=== PATIENT | female | born 1995 | race Two or more races ===

== ENCOUNTER 2017-07-11 22:26 | Emergency (ER) | payer SELFPAY ==
[~2017-07-11] VITALS: Ht 152.4 cm; Wt 82.0 kg
[2017-07-11] MEDS ORDERED: ONDANSETRON HCL 4MG/2ML VIAL IV STA (23:08)
[2017-07-11] MEDS ORDERED: MORPHINE SULFATE 4 MG/ML CPJ (NOT FOR IM USE) IV STA (23:08)
[2017-07-11] MEDS ORDERED: PIPERACILLIN/TAZOBACTAM 3.375GM/50ML PREMIX IV ONE (23:15)
[2017-07-11] MEDS ORDERED: PIPERACILLIN/TAZ 3.375G PREMIX 50 ML IV NR (23:15)
[2017-07-12 00:33] LABS: BASOPHILS % 0.1 % (0.0-2.0); EOSINOPHILS % 0.2 % (0.0-5.0); HEMATOCRIT. 38.2 % (36.0-48.0); HEMOGLOBIN. 12.5 g/dL (12.0-16.0); LYMPHOCYTES % 7.6 % (20.0-50.0); MEAN CORPUSCULAR HEMOGLOBIN 26.6 pg (28.0-32.0); MEAN CORPUSCULAR VOLUME 81.5 fL (81.0-99.0); MEAN PLATELET VOLUME 7.9 fl (7.4-10.4); MONOCYTES % 6.2 % (2.0-8.0); NEUTROPHILS % 85.9 % (40.0-76.0); PLATELET 441 x1000/uL (130-400); RED BLOOD CELL COUNT 4.69 mill/uL (4.2-5.4); RED CELL DISTRIBUTION WIDTH 13.8 % (11.6-14.6)
[2017-07-12 00:38] LABS: CHLORIDE 102 mEq/L (98-107)
[2017-07-12 00:40] LABS: INR 1.1; PROTHROMBIN TIME 11.1 sec (9.4-11.6)
[2017-07-12 01:29] LABS: CLARITY URINE CLEAR (CLEAR); COLOR URINE YELLOW (YELLOW); KETONES URINE NEGATIVE (NEGATIVE); LEUKOCYTE ESTERASE URINE NEGATIVE (NEGATIVE); NITRITE URINE NEGATIVE (NEGATIVE); OCCULT BLOOD URINE 2+ (NEGATIVE); PH URINE 7.5 (4.5-8.0); PROTEIN URINE NEGATIVE (NEGATIVE); SPECIFIC GRAVITY URINE 1.016 (1.005-1.030); UROBILINOGEN URINE 0.2 E.U./dL (0.2-1.0)
[2017-07-12 07:28] VITALS: BP 136/81
== END 2017-07-12 07:31 | disposition home or self-care (01) ==
LOC: ER 22:26 → CANBEDREQ 07-12 07:33
DX: I88.0 Nonspecific mesenteric lymphadenitis (principal); N83.291 Other ovarian cyst, right side
CPT/HCPCS: 36415; 74176; 76830; 76856; 80053; 81003; 81025; 83690; 85025; 85610; 96365; 96375; 99285; J2270; J2405; J2543; Z7610

== ENCOUNTER 2018-09-27 08:07 | Emergency (ER) | payer MEDICAID ==
[~2018-09-27] VITALS: Ht 160 cm; Wt 93.4 kg
[2018-09-27 09:27] LABS: BASOPHILS % 0.7 % (0.0-2.0); EOSINOPHILS % 1.4 % (0.0-5.0); LYMPHOCYTES % 36.1 % (20.0-50.0); MEAN CORPUSCULAR HEMOGLOBIN 27.7 pg (28.0-32.0); MEAN CORPUSCULAR VOLUME 83.3 fL (81.0-99.0); MEAN PLATELET VOLUME 7.6 fl (7.4-10.4); MONOCYTES % 10.4 % (2.0-8.0); NEUTROPHILS % 51.4 % (40.0-76.0); PLATELET 385 x1000/uL (130-400); RED BLOOD CELL COUNT 4.68 mill/uL (4.2-5.4); RED CELL DISTRIBUTION WIDTH 13.2 % (11.6-14.6)
[2018-09-27 09:30] LABS: CHLORIDE 107 mEq/L (98-107)
[2018-09-27] MEDS: SODIUM CHLORIDE 0.9% 1,000 ML IV ONE (09:48)
[2018-09-27] MEDS: FAMOTIDINE 20MG/2ML VIAL IV ONE (10:03)
[2018-09-27 10:04] LABS: CLARITY URINE CLOUDY (CLEAR); COLOR URINE YELLOW (YELLOW); KETONES URINE TRACE (NEGATIVE); LEUKOCYTE ESTERASE URINE NEGATIVE (NEGATIVE); NITRITE URINE NEGATIVE (NEGATIVE); OCCULT BLOOD URINE 1+ (NEGATIVE); PH URINE 6.5 (4.5-8.0); PROTEIN URINE NEGATIVE (NEGATIVE); SPECIFIC GRAVITY URINE 1.026 (1.005-1.030)
[2018-09-27] MEDS: ONDANSETRON HCL 4MG/2ML INJ IV ONE ×2 (10:04→11:23)
[2018-09-27] MEDS: MAGNESIUM/ALUMINUM HYDROXIDE/SIMETHICONE 30ML UDC PO ONE (10:04)
[2018-09-27 13:30] VITALS: BP 115/85
[2018-09-27] MEDS ORDERED: IOHEXOL-300 100 ML BOTTLE ONE (14:12)
== END 2018-09-27 13:35 | disposition home or self-care (01) ==
LOC: ER 08:07
DX: R11.2 Nausea with vomiting, unspecified (principal); R10.13 Epigastric pain
CPT/HCPCS: 36415; 74177; 80053; 81003; 81025; 83690; 85025; 96361; 96374; 96375; 96376; 99284; J2405; J3490; J7030; Q9967

== ENCOUNTER 2019-05-13 03:17 | Observation (INO) | payer MEDICAID ==
[~2019-05-13] VITALS: Ht 157.5 cm; Wt 97.5 kg
[2019-05-13] MEDS ORDERED: PNV1TABL76 PO (04:51)
[2019-05-13] MEDS ORDERED: SODIUM CHLORIDE 0.9% 1,000 ML IV ONE (05:00)
[2019-05-13 05:20] LABS: CLARITY URINE CLEAR (CLEAR); COLOR URINE YELLOW (YELLOW); KETONES URINE NEGATIVE (NEGATIVE); LEUKOCYTE ESTERASE URINE NEGATIVE (NEGATIVE); NITRITE URINE NEGATIVE (NEGATIVE); OCCULT BLOOD URINE 1+ (NEGATIVE); PH URINE 7.5 (4.5-8.0); PROTEIN URINE NEGATIVE (NEGATIVE); SPECIFIC GRAVITY URINE 1.015 (1.005-1.030); UROBILINOGEN URINE 0.2 E.U./dL (0.2-1.0)
[2019-05-13] MEDS: TERBUTALINE SULFATE 1MG/ML VIAL SUBCUT PRN ×2 (05:22→06:05)
== END 2019-05-13 12:00 | disposition home or self-care (01) ==
LOC: 8 EST LDRP 03:17
PROVIDERS: ADMIT Obstetrics & Gynecology; ATTEND Obstetrics & Gynecology
DX: O26.893 Other specified pregnancy related conditions, third trimester (principal); R10.30 Lower abdominal pain, unspecified; M54.5 Low back pain; Z3A.34 34 weeks gestation of pregnancy
CPT/HCPCS: 76815; 76818; 81003; 96372; G0378; J3105

== ENCOUNTER 2019-06-24 21:27 | Inpatient (IN) | payer MEDICAID ==
[~2019-06-24] VITALS: Ht 157.5 cm; Wt 106.6 kg
[~2019-06-24 21:27] MED LIST: PNV1TABL76 PO
[2019-06-24] MEDS ORDERED: DEXT 5%/LR + PITOCIN 20UNITS/L 1,000 ML IV SCH (22:10)
[2019-06-24] MEDS ORDERED: DEXT 5%/LACTATED RINGERS 1,000 ML IV SCH (22:10)
[2019-06-24] MEDS ORDERED: NALOXONE HCL 0.4 MG/ML 1ML VIAL IM PRN (22:15)
[2019-06-24] MEDS ORDERED: LIDOCAINE HCL 1% 20ML VIAL (Pyxis) INJ INFIL SCH (22:15)
[2019-06-24] MEDS ORDERED: RHO(D) IMMUNE GLOBULIN 300 MCG/SYR IM ONE (22:15)
[2019-06-24] MEDS ORDERED: MINERAL OIL 30ML BOTTLE PO NR (22:15)
[2019-06-24] MEDS ORDERED: METHYLERGONOVINE MALEATE 0.2 MG/ML IM PRN (22:15)
[2019-06-24] MEDS ORDERED: BUTORPHANOL TARTRATE 2 MG/ML VIAL IV PRN (22:15)
[2019-06-24 23:19] LABS: BASOPHILS % 0.3 % (0.0-2.0); EOSINOPHILS % 0.6 % (0.0-5.0); HEMATOCRIT. 36.6 % (36.0-48.0); HEMOGLOBIN. 12.3 g/dL (12.0-16.0); LYMPHOCYTES % 19.4 % (20.0-50.0); MEAN CORPUSCULAR HEMOGLOBIN 28.1 pg (28.0-32.0); MEAN CORPUSCULAR VOLUME 83.9 fL (81.0-99.0); MEAN PLATELET VOLUME 9.2 fl (7.4-10.4); MONOCYTES % 8.1 % (2.0-8.0); NEUTROPHILS % 71.6 % (40.0-76.0); PLATELET 304 x1000/uL (130-400); RED BLOOD CELL COUNT 4.37 mill/uL (4.2-5.4); RED CELL DISTRIBUTION WIDTH 16.1 % (11.6-14.6)
[2019-06-24 23:29] LABS: INR 0.9; PARTIAL THROMBOPLASTIN TIME 28.7 sec (23.4-31.0); PROTHROMBIN TIME 9.5 sec (9.6-11.0)
[2019-06-25] MEDS ORDERED: ROPIVACAINE HCL 2MG/ML (0.2%) 200ML BOTTLE IR ONE (00:15)
[2019-06-25] MEDS ORDERED: ROPIVACAINE HCL/PF EPIDURAL 200 ML EPI PRN (00:30)
[2019-06-25] MEDS ORDERED: FENTANYL CITRATE/PF 50MCG/ML 2ML VIAL ONE ×2 (00:34→10:05)
[2019-06-25] MEDS ORDERED: BUPIVACAINE HCL/PF 0.25% (2.5MG/ML) 10ML ONE (00:34)
[2019-06-25 00:37] LABS: HEPATITIS B SURFACE ANTIGEN NEGATIVE
[2019-06-25] MEDS ORDERED: CITRIC ACID/SODIUM CITRATE SOLN 30ML UDC PO SCH (11:30)
[2019-06-25] MEDS ORDERED: MORPHINE SULFATE/PF 1MG/ML 10ML AMP ONE (11:31)
[2019-06-25] MEDS ORDERED: OXYTOCIN 10 UNITS/ML 1ML ONE ×2 (11:31→11:58)
[2019-06-25] MEDS ORDERED: CEFAZOLIN SODIUM 1000MG/VIAL ONE (11:31)
[2019-06-25] MEDS ORDERED: LIDOCAINE HCL/PF 2% 20MG/ML 5 ML/VIAL ONE (11:32)
[2019-06-25] MEDS ORDERED: MIDAZOLAM HCL 2 MG/2 ML VIAL ONE (12:00)
[2019-06-25] MEDS ORDERED: KETOROLAC 60MG/2ML VIAL IM ONE (12:15)
[2019-06-25] MEDS ORDERED: DEXT 5%/LR + PITOCIN 20UNITS/L 1,000 ML IV SCH (13:06)
[2019-06-25] MEDS ORDERED: LANOLIN OINT 7GM TUBE TOP PRN (13:15)
[2019-06-25] MEDS ORDERED: ONDANSETRON HCL 4MG/2ML INJ IV PRN (13:15)
[2019-06-25] MEDS ORDERED: HYDROCODONE/ACETAMINOPHEN 5/325MG TABLET PO PRN (13:15)
[2019-06-25] MEDS ORDERED: IBUPROFEN 400MG TABLET PO PRN (13:15)
[2019-06-25] MEDS ORDERED: KETOROLAC 30MG/ML VIAL IV SCH (13:15)
[2019-06-25] MEDS ORDERED: BISACODYL 10MG SUPP PR PRN (13:15)
[2019-06-25] MEDS ORDERED: DIPHENHYDRAMINE 25MG CAPSULE PO PRN (13:15)
[2019-06-25] MEDS ORDERED: HEMORRHOIDAL SUPP PR PRN (13:15)
[2019-06-25] MEDS ORDERED: DIPHENHYDRAMINE 50MG/ML VIAL IV PRN (13:30)
[2019-06-25] MEDS ORDERED: BUTORPHANOL TARTRATE 2 MG/ML VIAL IV PRN ×2 (13:30)
[2019-06-25] MEDS ORDERED: NALOXONE HCL 0.4 MG/ML 1ML VIAL IV PRN (13:30)
[2019-06-25 15:24] LABS: CLARITY URINE CLEAR (CLEAR); COLOR URINE YELLOW (YELLOW); KETONES URINE NEGATIVE (NEGATIVE); LEUKOCYTE ESTERASE URINE NEGATIVE (NEGATIVE); NITRITE URINE NEGATIVE (NEGATIVE); OCCULT BLOOD URINE TRACE (NEGATIVE); PROTEIN URINE 2+ (NEGATIVE); SPECIFIC GRAVITY URINE 1.005 (1.005-1.030); UROBILINOGEN URINE 0.2 E.U./dL (0.2-1.0)
[2019-06-25 15:30] VITALS: BP 133/72
[2019-06-25 15:47] LABS: *AMPHETAMINES SCREEN URINE NEGATIVE (NEGATIVE)
[2019-06-25 15:48] LABS: *BARBITURATES SCREEN URINE NEGATIVE (NEGATIVE); *BENZODIAZEPINES SCREEN URINE NEGATIVE (NEGATIVE); *COCAINE SCREEN URINE NEGATIVE (NEGATIVE)
[2019-06-25 15:49] LABS: CANNABINOID URINE SCREEN NEGATIVE (NEGATIVE); METHADONE URINE SCREEN NEGATIVE (NEGATIVE); OPIATES URINE SCREEN NEGATIVE (NEGATIVE); PHENCYCLIDINE URINE SCREEN NEGATIVE (NEGATIVE)
[2019-06-25 16:30] VITALS: BP 158/91
[2019-06-25 20:00] VITALS: BP 125/78
[2019-06-25] MEDS: KETOROLAC 30MG/ML VIAL IV SCH (21:55)
[2019-06-26] VITALS: BP 122/80
[2019-06-26] MEDS: KETOROLAC 30MG/ML VIAL IV SCH (03:38)
[2019-06-26 04:00] VITALS: BP 125/80
[2019-06-26 07:30] LABS: BASOPHILS % 0.2 % (0.0-2.0); EOSINOPHILS % 0.5 % (0.0-5.0); HEMATOCRIT. 29.5 % (36.0-48.0); HEMOGLOBIN. 9.9 g/dL (12.0-16.0); LYMPHOCYTES % 14.2 % (20.0-50.0); MEAN CORPUSCULAR HEMOGLOBIN 28.3 pg (28.0-32.0); MEAN CORPUSCULAR VOLUME 84.2 fL (81.0-99.0); MEAN PLATELET VOLUME 8.7 fl (7.4-10.4); MONOCYTES % 9.1 % (2.0-8.0); PLATELET 252 x1000/uL (130-400); RED BLOOD CELL COUNT 3.51 mill/uL (4.2-5.4); RED CELL DISTRIBUTION WIDTH 16.5 % (11.6-14.6)
[2019-06-26 07:38] VITALS: BP 124/79
[2019-06-26] MEDS ORDERED: TETANUS, DIPHTHERIA, PERTUSSIS VAC/PF 0.5ML (>7YR OLD) IM ONE (08:00)
[2019-06-26] MEDS ORDERED: INFLUENZA VIRUS VACCINE(AFLURIA) 0.5ML SYR IM ONE (08:00)
[2019-06-26] MEDS: SIMETHICONE 80MG TABLET CHEW PO SCH ×4 (09:30→21:18)
[2019-06-26] MEDS: FERROUS SULFATE 325MG TABLET PO SCH ×3 (09:30→17:08)
[2019-06-26] MEDS: PRENATAL VIT/FE FUMARATE/FA TABLET PO SCH (09:30)
[2019-06-26] MEDS: IBUPROFEN 800MG TABLET PO PRN ×2 (13:05→21:26)
[2019-06-26 15:10] VITALS: BP 123/60
[2019-06-26 19:45] VITALS: BP 136/78
[2019-06-26] MEDS: DOCUSATE SODIUM 100MG CAPSULE PO SCH (21:18)
[2019-06-26 23:45] VITALS: BP 130/72
[2019-06-27 04:00] VITALS: BP 128/79
[2019-06-27 07:58] VITALS: BP 126/74
[2019-06-27] MEDS: PRENATAL VIT/FE FUMARATE/FA TABLET PO SCH (08:40)
[2019-06-27] MEDS: SIMETHICONE 80MG TABLET CHEW PO SCH ×4 (08:40→21:54)
[2019-06-27] MEDS: FERROUS SULFATE 325MG TABLET PO SCH ×3 (08:40→17:47)
[2019-06-27] MEDS: IBUPROFEN 800MG TABLET PO PRN ×2 (08:40→17:48)
[2019-06-27 16:03] VITALS: BP 121/66
[2019-06-27 21:30] VITALS: BP 126/78
[2019-06-27] MEDS: DOCUSATE SODIUM 100MG CAPSULE PO SCH (21:54)
[2019-06-28] MEDS ORDERED: HYDR-4001 PO (00:58)
[2019-06-28] MEDS ORDERED: IBUP-2030 PO (00:58)
[2019-06-28 05:30] VITALS: BP 143/88
[2019-06-28 08:00] VITALS: BP 135/88
[2019-06-28] MEDS: PRENATAL VIT/FE FUMARATE/FA TABLET PO SCH (09:43)
[2019-06-28] MEDS: IBUPROFEN 800MG TABLET PO PRN (09:43)
[2019-06-28] MEDS: FERROUS SULFATE 325MG TABLET PO SCH (09:43)
[2019-06-28] MEDS: SIMETHICONE 80MG TABLET CHEW PO SCH (09:44)
== END 2019-06-28 11:00 | disposition home or self-care (01) | DRG 540 ==
LOC: OBSVTOIN 21:27 → 8 EST LDRP 21:27 → 8EST 06-25 15:22
PROVIDERS: ADMIT Obstetrics & Gynecology; ATTEND Obstetrics & Gynecology
PROC: 10D00Z1 Extraction of Products of Conception, Low, Open Approach (ICD-10-PCS; principal; 2019-06-25)
PROC: 3E033VJ Introduction of Other Hormone into Peripheral Vein, Percutaneous Approach (ICD-10-PCS; 2019-06-25)
PROC: 10907ZC Drainage of Amniotic Fluid, Therapeutic from Products of Conception, Via Natural or Artificial Opening (ICD-10-PCS; 2019-06-25)
DX: O32.1XX0 Maternal care for breech presentation, not applicable or unspecified (principal); D64.9 Anemia, unspecified; O99.344 Other mental disorders complicating childbirth; F32.9 Major depressive disorder, single episode, unspecified; O48.0 Post-term pregnancy; O90.81 Anemia of the puerperium; O14.94 Unspecified pre-eclampsia, complicating childbirth; Z37.0 Single live birth; Z3A.40 40 weeks gestation of pregnancy
CPT/HCPCS: 36415; 76815; 80305; 81003; 85025; 86592; 86703; 86762; 86850; 86900; 87340; 88307; 99281; G0378; J0690; J1885; J2250; J2274; J2590; J2795; J3010; J3490; Q0163; A4315

== ENCOUNTER 2022-06-29 06:37 | Emergency (ER) | payer MEDICAID ==
[~2022-06-29] VITALS: Ht 160 cm; Wt 9.0 kg
[~2022-06-29 06:37] MED LIST changes: +HYDR-4001 PO; +IBUP-2030 PO
[2022-06-29 07:09] VITALS: BP 159/89
[2022-06-29] MEDS ORDERED: DEXAMETHASONE 10 MG/ML VIAL IV ONE (08:30)
[2022-06-29] MEDS ORDERED: ACETAMINOPHEN 325MG TABLET PO ONE (08:30)
[2022-06-29] MEDS ORDERED: IBUP-2029 MT (09:20)
== END 2022-06-29 09:34 | disposition home or self-care (01) ==
LOC: ER 06:37
DX: J02.9 Acute pharyngitis, unspecified (principal)
CPT/HCPCS: 81025; 96374; 99283; J1100

== ENCOUNTER 2022-07-04 07:37 | Emergency (ER) | payer MEDICAID ==
[~2022-07-04] VITALS: Ht 160 cm; Wt 113.0 kg
[~2022-07-04 07:37] MED LIST changes: +IBUP-2029 MT
[2022-07-04 07:58] VITALS: BP 151/113
[2022-07-04] MEDS ORDERED: ACETAMINOPHEN 325MG TABLET PO ONE (10:30)
[2022-07-04] MEDS ORDERED: DEXA6TAB PO (11:00)
[2022-07-04] MEDS ORDERED: ACET-2708 MT (11:00)
== END 2022-07-04 11:31 | disposition home or self-care (01) ==
LOC: ER 07:37
DX: J03.90 Acute tonsillitis, unspecified (principal)
CPT/HCPCS: 99283

== ENCOUNTER 2024-07-29 02:35 | Emergency (ER) | payer MEDICAID ==
[~2024-07-29] VITALS: Ht 160 cm; Wt 123.0 kg
[~2024-07-29 02:35] MED LIST changes: +ACET-2708 MT; +DEXA6TAB PO
[2024-07-29 02:40] VITALS: TEMP 37; O2SAT 99
[2024-07-29 03:30] LABS: BASOPHILS % 0.5 % (0.0-2.0); EOSINOPHILS % 1.9 % (0.0-5.0); HEMATOCRIT. 39.2 % (36.0-48.0); HEMOGLOBIN. 12.6 g/dL (12.0-16.0); LYMPHOCYTES % 39.8 % (20.0-50.0); MEAN CORPUSCULAR HEMOGLOBIN 27.1 pg (28.0-32.0); MEAN CORPUSCULAR HGB CONC 32.2 g/dL (31.0-37.0); MEAN CORPUSCULAR VOLUME 84.3 fL (81.0-99.0); MONOCYTES % 7.5 % (2.0-8.0); NEUTROPHILS % 50.3 % (40.0-76.0); PLATELET 413 x1000/uL (130-400); RED BLOOD CELL COUNT 4.65 mill/uL (4.2-5.4); RED CELL DISTRIBUTION WIDTH 13.9 % (11.6-14.6); WHITE BLOOD COUNT 11.2 x1000/uL (4.5-11.0)
[2024-07-29 03:42] LABS: CLARITY URINE CLEAR (CLEAR); COLOR URINE YELLOW (YELLOW); GLUCOSE URINE NEGATIVE (NEGATIVE); KETONES URINE NEGATIVE (NEGATIVE); LEUKOCYTE ESTERASE URINE NEGATIVE (NEGATIVE); NITRITE URINE NEGATIVE (NEGATIVE); OCCULT BLOOD URINE 1+ (NEGATIVE); PH URINE 6.5 (4.5-8.0); PROTEIN URINE NEGATIVE (NEGATIVE); SPECIFIC GRAVITY URINE 1.015 (1.005-1.030); UROBILINOGEN URINE 0.2 E.U./dL (0.2-1.0)
[2024-07-29 03:48] LABS: CHLORIDE 103 mEq/L (98-107); POTASSIUM 4.1 mEq/L (3.5-5.1); SODIUM 139 mEq/L (136-145)
[2024-07-29 03:49] LABS: CALCIUM 9.4 mg/dL (8.7-10.4); CARBON DIOXIDE 27 mEq/L (21-32)
[2024-07-29 03:54] LABS: CREATININE 0.6 mg/dL (0.6-1.0); GLUCOSE 102 mg/dL (70-105); UREA NITROGEN BLOOD 9 mg/dL (9-23)
[2024-07-29 04:07] LABS: SQUAMOUS EPITHELIAL CELL URINE 2+ /lpf (RARE/1+)
[2024-07-29 04:08] LABS: BACTERIA URINE NONE SEEN; WBC URINE 0-2 /hpf (0-2)
[2024-07-29] MEDS ORDERED: DOXY100T2 PO (08:47)
[2024-07-29] MEDS ORDERED: IBUP-2028 PO (08:47)
[2024-07-29 09:17] VITALS: BP 150/92; PULSE 69; RESP 16; O2SAT 97
== END 2024-07-29 09:20 | disposition home or self-care (01) ==
LOC: ER 02:35
DX: N70.11 Chronic salpingitis (principal); Z79.899 Other long term (current) drug therapy; Z98.890 Other specified postprocedural states
CPT/HCPCS: 36415; 76830; 76856; 80048; 81003; 85025; 99284

== ENCOUNTER 2024-11-03 01:05 | Emergency (ER) | payer OTHER ==
[~2024-11-03] VITALS: Ht 160 cm; Wt 125.4 kg
[~2024-11-03 01:05] MED LIST changes: +DOXY100T2 PO; +IBUP-2028 PO
[2024-11-03 01:10] VITALS: O2SAT 98
[2024-11-03] MEDS ORDERED: AMOX-494 MT (02:23)
[2024-11-03] MEDS ORDERED: IBUP-2029 MT (02:23)
[2024-11-03 03:05] VITALS: BP 134/86; PULSE 91; RESP 19; TEMP 36.8; O2SAT 99
[2024-11-03] MEDS: KETOROLAC 30MG/ML VIAL IM ONE (03:05)
[2024-11-03] MEDS: AMOXICILLIN 500MG CAPSULE PO ONE (03:05)
[2024-11-03] MEDS: DEXAMETHASONE 10 MG/ML VIAL IM ONE (03:06)
[2024-11-03] MEDS: ACETAMINOPHEN 325MG TABLET PO ONE (03:06)
== END 2024-11-03 03:20 | disposition home or self-care (01) ==
LOC: ER 01:05
DX: J03.90 Acute tonsillitis, unspecified (principal); R03.0 Elevated blood-pressure reading, without diagnosis of hypertension; Z79.52 Long term (current) use of systemic steroids; Z79.1 Long term (current) use of non-steroidal anti-inflammatories (NSAID); Z79.899 Other long term (current) drug therapy
CPT/HCPCS: 99284; 81025; 87430; 87070; 96372; J1885; J1100